=== PATIENT | female | born 1965 | race Caucasian/White ===

== ENCOUNTER 2023-04-19 14:31 | Emergency (ER) | payer OTHER ==
[~2023-04-19] VITALS: Ht 160 cm; Wt 95.3 kg
[2023-04-19] MEDS ORDERED: ONDANSETRON 4 MG/2 ML VIAL IV ONE (14:45)
[2023-04-19] MEDS ORDERED: KETOROLAC TROMETHAMINE 15 MG INJ IVP ONE (14:45)
[2023-04-19 14:53] LABS: HEMATOCRIT 42.2 % (31.2-41.9); MEAN CORPUSCULAR HEMOGLOBIN 31.8 uug (24.7-32.8); MEAN CORPUSCULAR VOLUME 93.1 fL (75.5-95.3); PLATELET COUNT (AUTO) 326 K/uL (179-408)
[2023-04-19] MEDS ORDERED: KETOROLAC TROMETHAMINE 15 MG INJ ONE (14:53)
[2023-04-19] MEDS ORDERED: ONDANSETRON 4 MG/2 ML VIAL ONE (14:53)
[2023-04-19 15:04] LABS: *BILIRUBIN,URIN NEGATIVE (NEGATIVE); *BLOOD, URINE TRACE (NEGATIVE); *CLARITY,URINE CLEAR (CLEAR); *COLOR,URINE YELLOW (YELLOW); *KETONES,URINE NEGATIVE (NEGATIVE); *UROBILINOGEN,URINE 0.2 E.U./dl (NORMAL); LEUKOCYTE ESTERASE ,URINE NEGATIVE (NEGATIVE); NITRITE, URINE NEGATIVE (NEGATIVE); UGLUCOSE NEGATIVE (NEGATIVE)
[2023-04-19 15:08] LABS: CARBON DIOXIDE 28 mmol/L (21-32); CHLORIDE 101 mmol/L (98-107); CREATININE 0.6 mg/dL (0.6-1.3); GLUCOSE 108 mg/dL (74-106); POTASSIUM 4.1 mmol/L (3.5-5.1); UREA NITROGEN, BLOOD 12 mg/dL (7-18)
[2023-04-19 15:15] LABS: BACTERIA,URINE NONE SEEN /HPF (NONE SEEN); RBC,URINE 0-3 /HPF (0-3); SQUAMOUS EPITHELIAL CELL,UR FEW /HPF (NONE SEEN); WBC,URINE NONE SEEN /HPF (0-3)
[2023-04-19 15:17] LABS: ALANINE AMINOTRANSFERASE 50 U/L (14-59); ALKALINE PHOSPHATASE 73 U/L (50-136); ASPARTATE AMINOTRANSFERASE 37 U/L (15-37); BILIRUBIN,DIRECT 0.1 mg/dL (0.0-0.2); BILIRUBIN,TOTAL 0.4 mg/dL (0.2-1.0); TOTAL PROTEIN, SERUM 7.8 g/dL (6.4-8.2)
[2023-04-19 15:21] LABS: LIPASE 6884 U/L (73-393)
[2023-04-19] MEDS ORDERED: PANTOPRAZOLE SODIUM IV 40 MG in IV DEXTROSE 5% 100 ML IV ONE (16:00)
[2023-04-19] MEDS ORDERED: PANTOPRAZOLE SODIUM 40 MG VIAL ONE (16:13)
[2023-04-19] MEDS ORDERED: PANTOPRAZOLE SODIUM 40 MG VIAL IV ONE (16:30)
[2023-04-19] MEDS ORDERED: PANT40TA2 PO (17:35)
--- NOTE | 2023-04-19 17:47 | NUR ---
IV removed. Catheter intact and site benign. Pressure and 4x4 gauze applied to site. No bleeding noted.
--- NOTE | 2023-04-19 17:48 | NUR ---
Patient discharged to home in stable condition. Written and verbal after care instructions given. Patient verbalizes understanding of instructions. Stressed follow up or return to ER for worsening s/s.
[2023-04-19 17:49] VITALS: BP 145/80
== END 2023-04-19 17:50 | disposition home or self-care (01) ==
LOC: ER 14:31
DX: K85.90 Acute pancreatitis without necrosis or infection, unspecified (principal); R07.89 Other chest pain; Z88.5 Allergy status to narcotic agent; Z20.822 Contact with and (suspected) exposure to COVID-19
CPT/HCPCS: 99285; 96374; 76705; 71045; 96375; 87426; 80076; 80048; 81001; 83690; 85025; 84484; 36415; 93005; J1885; J2405; C9113 ×2; J7040; A4663